=== PATIENT | male | born 1970 | race American Indian/Alaskan Native ===

== ENCOUNTER 2017-11-03 16:07 | Emergency (ER) | payer SELFPAY ==
[2017-11-03] MEDS ORDERED: NACL 0.9% 1000 ML 1,000 ML ONE ×2 (16:15→16:16)
[2017-11-03] MEDS ORDERED: BOOSTRIX IM ONE (16:27)
[2017-11-03] MEDS ORDERED: NACL 0.9% 1000 ML 1,000 ML IV ONE ×2 (16:28)
[2017-11-03 16:41] LABS: BUN/Creatinine Ratio 9; Blood Urea Nitrogen 12 mg/dL (9-20); Calcium 8.9 mg/dL (8.4-10.2); Hemolysis Index 13
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
[2017-11-03 16:46] LABS: Basophils # (Auto) 0.1 K/mm3 (0.0-0.1); Basophils % (Auto) 0.9 % (0.0-1.8); Eosinophils # (Auto) 0.1 K/mm3 (0.0-0.4); Eosinophils % (Auto) 0.7 % (0.0-4.3); Hematocrit 40.1 % (35.5-45.6); Hemoglobin 13.3 gm/dl (11.8-15.2); INR 0.97 (0.87-1.13); Lymphocytes # (Auto) 3.7 K/mm3 (1.2-5.4); Lymphocytes % (Auto) 42.5 % (13.4-35.0); Mean Corpuscular HGB Conc 33 % (32-34); Mean Corpuscular Hemoglobin 30 pg (28-32); Mean Corpuscular Volume 89 fl (84-94); Monocytes # (Auto) 0.7 K/mm3 (0.0-0.8); Monocytes % (Auto) 8.2 % (0.0-7.3); Platelet Count 306 K/mm3 (140-440); Red Blood Count 4.52 M/mm3 (3.65-5.03); Red Cell Distribution Width 14.8 % (13.2-15.2)
[2017-11-03] MEDS ORDERED: XYLOCAINE 1% 20 mL ONE (17:35)
[2017-11-03] MEDS ORDERED: NACL 0.9% 500 ML IR ONE (17:36)
[2017-11-03] MEDS ORDERED: ceFAZolin 1 GM in NACL 0.9% 20 ML IV ONE (19:00)
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
[2017-11-03 20:39] VITALS: BP 128/76
== END 2017-11-03 20:30 | disposition home or self-care (01) ==
LOC: ED 16:07
DX: S71.112A Laceration without foreign body, left thigh, initial encounter (principal); S51.812A Laceration without foreign body of left forearm, initial encounter; S41.112A Laceration without foreign body of left upper arm, initial encounter; R55 Syncope and collapse; Y08.89XA Assault by other specified means, initial encounter; Y93.89 Activity, other specified; Y92.89 Other specified places as the place of occurrence of the external cause; Y99.8 Other external cause status
CPT/HCPCS: 12002; 36415; 71045; 80048; 85025; 85610; 85730; 86850; 86900; 86901; 90471; 90715; 96361; 96365; 99284; J0690; J7030